=== PATIENT | male | born 1945 | race Caucasian/White ===

== ENCOUNTER 2016-09-20 19:06 | Emergency (ER) | payer OTHER ==
[~2016-09-20] VITALS: Ht 182.9 cm; Wt 124.5 kg
[~2016-09-20 19:06] MED LIST: BACT800T5 PO; FURO1TAB62 PO; LEVO100T5 PO; METF500T PO; ZOCO80TA PO
[2016-09-20 19:51] VITALS: BP 165/103; PULSE 103; RESP 20; TEMP 99.2; O2SAT 95
[2016-09-20] MEDS ORDERED: RAPA4CAP PO (20:08)
[2016-09-20 20:39] LABS: BLOOD, URINE LARGE (NEG); GLUCOSE,URINE NEG (NEG); KETONE, URINE NEG (NEG); PH, URINE 5.5 (5.0-8.5)
--- NOTE | 2016-09-20 20:40 | PD ---
HPI . Urine will not flow through the Sy catheter Chief Complaint: Complaint Time Seen by Provider: 20:08 Travel History International Travel<30 days: No Contact w/Intl Traveler<30days: No Traveled to known affect area: No History of Present Illness HPI Patient presents stating that urine stopped flowing through his Sy at about 3 :00 this afternoon. He has a lot of suprapubic pressure. He states it all started when he had a bowel movement which caused a little bit of blood from his bladder. He states he noticed blood in the catheter and at the tip of his penis. Since then, urine will not flow through the Sy. He denies any fever or any other systemic complaints. He has the Sy because of urinary retention associated with UTI and prostatitis. 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) High Cholesterol: Yes Diabetes: Yes (Borderline) Patient Takes Glucophage: No Diminished Hearing: No Influenza Vaccination: No Past Surgical History Other Surgery: Yes (thyroid removed r/t ca) Social History Alcohol Use: Yes (2-3 daily ) Tobacco Use: No (quit 7 years ago ) Substance Use: No Allergies-Medications (Allergen,Severity, Reaction): Coded Allergies: No Known Allergies (Verified , 09/20/16) Reported Meds & Prescriptions Reported Meds & Active Scripts Active Reported Rapaflo (Silodosin) 4 Mg Cap 4 Mg PO DAILY Zocor (Simvastatin) 80 Mg Tab 80 Mg PO DAILY Metformin (Metformin HCl) 500 Mg Tab 500 Mg PO DAILY With a meal Levothyroxine (Levothyroxine Sodium) 100 Mcg Tab 100 Mcg PO DAILY Lasix (Furosemide) 20 Mg Tab 40 Mg PO BID Review of Systems Except as stated in HPI: all other systems reviewed are Neg General / Constitutional: No: Fever, Chills Respiratory: Positive: Other Gastrointestinal: Positive: Abdominal Pain, No: Nausea, Vomiting Genitourinary: Positive: Other (Sy catheter) Physical Exam Narrative GENERAL: This is an elderly appearing man who speaks with a mechanical voice box SKIN: Warm and dry. HEAD: Atraumatic. Normocephalic. EYES: Pupils equal and round. ENT: No nasal bleeding or discharge. Mucous membranes pink and moist. NECK: Trachea midline. CARDIOVASCULAR: Regular rate and rhythm. RESPIRATORY: No accessory muscle use. GASTROINTESTINAL: Abdomen soft, non-tender, nondistended. I don't feel full bladder. MUSCULOSKELETAL: No obvious deformities. No edema. NEUROLOGICAL: Awake and alert. No obvious cranial nerve deficits. Motor grossly within normal limits. Normal speech. PSYCHIATRIC: Appropriate mood and affect; insight and judgment normal. Data Data Last Documented VS Vital Signs Date Time Temp Pulse Resp B/P Pulse Ox O2 Delivery O2 Flow Rate FiO2 09/20/16 19:51 99.2 103 20 165/103 95 Orders Urinary Catheter Insert/Apply (09/20/16 20:08) Urinalysis - C+S If Indicated (09/20/16 20:08) Urine Culture (09/20/16 20:20) Labs Laboratory Tests Test 09/20/16 20:20 Urine Collection Type CATH Urine Color LIGHT-BROWN Urine Turbidity CLOUDY Urine pH 5.5 Urine Specific [place] 1.010 Urine Protein 100 mg/dL Urine Glucose (UA) NEG mg/dL Urine Ketones NEG mg/dL Urine Occult Blood LARGE Urine Nitrite POS Urine Bilirubin NEG Urine Leukocyte Esterase SMALL Urine RBC INNUM /hpf Urine WBC 25-49 /hpf Urine WBC Clumps FEW Urine Squamous Epithelial 0-2 /hpf Cells Urine Bacteria MANY /hpf Microscopic Urinalysis Comment CULTURE INDICATED MDM Medical Decision Making Medical Screen Exam Complete: Yes Emergency Medical Condition: Yes Differential Diagnosis Differential diagnosis includes acute urinary retention, acute prostatitis, UTI. Narrative Course Patient presents stating that urine will not flow through his Sy. His old Sy has been removed and replaced. Initially, some small clots of blood. The urine has cleared. He initially drained about 800 cc. UA shows large blood, positive nitrite, positive leukocyte esterase, too numerous to count red blood cells, 25-49 white cells, white blood cell clumps and many bacteria. Diagnosis Primary Impression: Urinary retention Additional Impression: Acute UTI Med/Other Pt SpecificInfo: Prescription(s) given Scripts Cephalexin (Keflex)500 Mg [id number] Mg PO Q8H #30 CAP Ref 0 Prov:Cyndie Lynch MD 09/20/16 Disposition: 01 DISCHARGE HOME Condition: Stable Cyndie Lynch MD Sep 20, 2016 20:40
[2016-09-20 20:46] LABS: METHOD OF COLLECTION CATH; NITRITE,URINE POS (NEG); URINE COLOR LIGHT-BROWN (YELLW/STRAW)
[2016-09-20 20:47] LABS: BACTERIA, URINE MANY /hpf; COMMENT (UR) CULTURE INDICATED; CULTURE IF INDICATED CULTURE INDICATED; RBC, URINE INNUM /hpf (0-3); SQUAMOUS EPITHELIAL CELL URINE 0-2 /hpf (0-5)
[2016-09-20] MEDS ORDERED: CEPH-460 PO (21:12)
[2016-09-20 21:38] VITALS: BP 125/67
== END 2016-09-20 21:41 | disposition home or self-care (01) ==
LOC: PHED 19:06
DX: N39.0 Urinary tract infection, site not specified (principal); B96.20 Unspecified Escherichia coli [E. coli] as the cause of diseases classified elsewhere; R33.9 Retention of urine, unspecified
CPT/HCPCS: 51702; 81001; 87077; 87086; 87186

== ENCOUNTER 2016-09-30 09:36 | Emergency (ER) | payer OTHER ==
[~2016-09-30] VITALS: Ht 185.4 cm; Wt 125.0 kg
[~2016-09-30 09:36] MED LIST changes: -BACT800T5 PO; +CEPH-460 PO; +RAPA4CAP PO
[2016-09-30 09:38] VITALS: BP 139/77; PULSE 57; RESP 18; TEMP 97.8; O2SAT 98
--- NOTE | 2016-09-30 09:53 | PD ---
HPI . Wants Sy removed. Chief Complaint: Complaint Time Seen by Provider: 09:44 Travel History International Travel<30 days: No Contact w/Intl Traveler<30days: No Traveled to known affect area: No History of Present Illness HPI Patient presents requesting that his Sy catheter be removed. The Sy was initially inserted because of urinary retention associated with a UTI. He states that his urinary symptoms have completely resolved he feels that it is time for the catheter to be removed. 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) High Cholesterol: Yes Diabetes: Yes (Borderline) Diminished Hearing: No Past Surgical History Other Surgery: Yes (thyroid removed r/t ca) Social History Alcohol Use: Yes (2-3 daily ) Tobacco Use: No (quit 7 years ago ) Substance Use: No Allergies-Medications (Allergen,Severity, Reaction): Coded Allergies: No Known Allergies (Verified , 09/30/16) Reported Meds & Prescriptions Reported Meds & Active Scripts Active Keflex (Cephalexin) 500 Mg Cap 500 Mg PO Q8H Reported Rapaflo (Silodosin) 4 Mg Cap 4 Mg PO DAILY Zocor (Simvastatin) 80 Mg Tab 80 Mg PO DAILY Metformin (Metformin HCl) 500 Mg Tab 500 Mg PO DAILY With a meal Levothyroxine (Levothyroxine Sodium) 100 Mcg Tab 100 Mcg PO DAILY Lasix (Furosemide) 20 Mg Tab 40 Mg PO BID Review of Systems Except as stated in HPI: all other systems reviewed are Neg General / Constitutional: No: Fever, Chills Gastrointestinal: Positive: Other (clear urine with no suprapubic pain.) Physical Exam Narrative GENERAL: Speaks with the aid of a mechanical voice box SKIN: Warm and dry. HEAD: Atraumatic. Normocephalic. EYES: Pupils equal and round. ENT: No nasal bleeding or discharge. Mucous membranes pink and moist. NECK: Trachea midline. CARDIOVASCULAR: Regular rate and rhythm. RESPIRATORY: No accessory muscle use. GASTROINTESTINAL: Abdomen soft, non-tender, nondistended. : Sy catheter is in place and is draining clear yellow urine. MUSCULOSKELETAL: No obvious deformities. No edema. NEUROLOGICAL: Awake and alert. No obvious cranial nerve deficits. Motor grossly within normal limits. Normal speech. PSYCHIATRIC: Appropriate mood and affect; insight and judgment normal. Data Data Last Documented VS Vital Signs Date Time Temp Pulse Resp B/P Pulse Ox O2 Delivery O2 Flow Rate FiO2 09/30/16 09:38 97.8 57 18 139/77 98 MDM Medical Decision Making Medical Screen Exam Complete: Yes Emergency Medical Condition: Yes Differential Diagnosis My differential diagnosis of urinary retention includes but is not limited to BPH, prostatitis, UTI Narrative Course We will remove the catheter and instruct the patient to return if he is subsequently unable to urinate. Diagnosis Primary Impression: Urinary retention Disposition: 01 DISCHARGE HOME Condition: Stable Cyndie Lynch MD Sep 30, 2016 09:53
== END 2016-09-30 10:44 | disposition home or self-care (01) ==
LOC: PHED 09:36
DX: R33.9 Retention of urine, unspecified (principal)
CPT/HCPCS: 99283

== ENCOUNTER 2017-05-23 07:38 | Emergency (ER) | payer OTHER ==
[~2017-05-23] VITALS: Ht 185.4 cm; Wt 114.0 kg
[2017-05-23 07:43] VITALS: BP 183/88; PULSE 89; RESP 16; TEMP 99; O2SAT 99
--- NOTE | 2017-05-23 08:04 | PD ---
HPI Chief Complaint: Complaint Time Seen by Provider: 08:01 Travel History International Travel<30 days: No Contact w/Intl Traveler<30days: No Traveled to known affect area: No History of Present Illness HPI 72-year-old male patient with history of previous benign prostate hypertrophy, multiple medical issues, has had problems with urinary outflow obstruction about 8 months ago, presents to the ER today because he has not been able to urinate since 8 PM last night. He states that he felt abdominal distention. He states it feels like the last time he had problems with his prostate. He denies any fevers, vomiting, or any other symptoms. 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) High Cholesterol: Yes Diabetes: Yes (Borderline) Diminished Hearing: No Immunizations Current: Yes Past Surgical History Other Surgery: Yes (thyroid removed r/t ca) Social History Alcohol Use: Yes (2-3 daily ) Tobacco Use: No (quit 7 years ago ) Substance Use: No Allergies-Medications (Allergen,Severity, Reaction): Coded Allergies: No Known Allergies (Verified , 05/23/17) Reported Meds & Prescriptions Reported Meds & Active Scripts Active Reported Rapaflo (Silodosin) 4 Mg Cap 4 Mg PO DAILY Zocor (Simvastatin) 80 Mg Tab 80 Mg PO DAILY Metformin (Metformin HCl) 500 Mg Tab 500 Mg PO DAILY With a meal Levothyroxine (Levothyroxine Sodium) 100 Mcg Tab 100 Mcg PO DAILY Lasix (Furosemide) 20 Mg Tab 40 Mg PO BID Review of Systems Except as stated in HPI: all other systems reviewed are Neg Physical Exam Narrative GENERAL: Pleasant well-developed elderly white male patient currently in mild distress. Awake and oriented 3. SKIN: Focused skin assessment warm/dry. HEAD: Atraumatic. Normocephalic. EYES: Pupils equal and round. No scleral icterus. No injection or drainage. ENT: No nasal bleeding or discharge. Mucous membranes pink and moist. NECK: Trachea midline. Status post throat cancer resection and tracheostomy. CARDIOVASCULAR: Regular rate and rhythm. No murmur appreciated. RESPIRATORY: No accessory muscle use. Clear to auscultation. Breath sounds equal bilaterally. GASTROINTESTINAL: Abdomen soft, non-tender, moderately distended. Hepatic and splenic margins not palpable. MUSCULOSKELETAL: No obvious deformities. No clubbing. No cyanosis. No edema. NEUROLOGICAL: Awake and alert. No obvious cranial nerve deficits. Motor grossly within normal limits. Normal speech. PSYCHIATRIC: Appropriate mood and affect; insight and judgment normal. Data Data Last Documented VS Vital Signs Date Time Temp Pulse Resp B/P (MAP) Pulse Ox O2 Delivery O2 Flow Rate FiO2 05/23/17 07:43 99.0 89 16 183/88 (119) 99 Orders Orders Urinary Catheter Insert/Apply (05/23/17 07:46) MDM Medical Decision Making Medical Screen Exam Complete: Yes Emergency Medical Condition: Yes Medical Record Reviewed: Yes Differential Diagnosis Urinary outflow obstruction/BPH Narrative Course A Sy catheter was placed and at least 750 cc of clear yellow urine was strained. He felt much improved. At this point, my plan would be to release him with follow-up to his urologist, Dr. Peralta, with a leg bag. Return for new issues as needed. The plan has been discussed with him and he states understanding. Diagnosis Primary Impression: Urinary retention Disposition: DISCHARGE HOME Condition: Stable Vaughn Son MD May 23, 2017 08:04
== END 2017-05-23 08:36 | disposition home or self-care (01) ==
LOC: PHED 07:38
DX: R33.9 Retention of urine, unspecified (principal); R14.0 Abdominal distension (gaseous); R73.03 Prediabetes; E78.00 Pure hypercholesterolemia, unspecified; Z85.850 Personal history of malignant neoplasm of thyroid; Z79.84 Long term (current) use of oral hypoglycemic drugs
CPT/HCPCS: 51702

== ENCOUNTER 2017-06-26 10:58 | Emergency (ER) | payer OTHER ==
[~2017-06-26] VITALS: Ht 182.9 cm; Wt 116.1 kg
[~2017-06-26 10:58] MED LIST changes: -CEPH-460 PO
[2017-06-26 11:01] VITALS: BP 138/72; PULSE 57; RESP 18; TEMP 98.9; O2SAT 96
--- NOTE | 2017-06-26 11:19 | PD ---
HPI Chief Complaint: Complaint Time Seen by Provider: 11:14 Travel History International Travel<30 days: No Contact w/Intl Traveler<30days: No Traveled to known affect area: No History of Present Illness HPI Patient presents with complaints of urinary catheter bag leakage. Denies any new chest pain shortness of breath urinary or bowel symptoms. Denies any nausea vomiting diarrhea or fever. 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) High Cholesterol: Yes Diabetes: Yes Diminished Hearing: No Immunizations Current: Yes ?: Not Past Surgical History Other Surgery: Yes (thyroid removed r/t ca) Social History Alcohol Use: Yes (occas) Tobacco Use: No (quit 7 years ago ) Substance Use: No Allergies-Medications (Allergen,Severity, Reaction): Coded Allergies: No Known Allergies (Verified , 06/26/17) Reported Meds & Prescriptions Reported Meds & Active Scripts Active Reported Rapaflo (Silodosin) 4 Mg Cap 4 Mg PO DAILY Zocor (Simvastatin) 80 Mg Tab 80 Mg PO DAILY Metformin (Metformin HCl) 500 Mg Tab 500 Mg PO DAILY With a meal Levothyroxine (Levothyroxine Sodium) 100 Mcg Tab 100 Mcg PO DAILY Lasix (Furosemide) 20 Mg Tab 40 Mg PO BID Review of Systems General / Constitutional: No: Fever Eyes: No: Visual changes HENT: No: Headaches Cardiovascular: No: Chest Pain or Discomfort Respiratory: No: Shortness of Breath Gastrointestinal: No: Abdominal Pain Genitourinary: No: Dysuria Musculoskeletal: No: Pain Skin: No Rash Neurologic: No: Weakness Psychiatric: No: Depression Endocrine: No: Polydipsia Hematologic/Lymphatic: No: Easy Bruising Physical Exam Narrative GENERAL: Well-nourished, well-developed patient. SKIN: Focused skin assessment warm/dry. HEAD: Normocephalic. EYES: No scleral icterus. No injection or drainage. NECK: Supple, trachea midline. No JVD or lymphadenopathy. CARDIOVASCULAR: Regular rate and rhythm without murmurs, gallops, or rubs. RESPIRATORY: Breath sounds equal bilaterally. No accessory muscle use. GASTROINTESTINAL: Abdomen soft, non-tender, nondistended. Urinary catheter in place without competition, urinary leakage at the base of the bag MUSCULOSKELETAL: No cyanosis, or edema. BACK: Nontender without obvious deformity. No CVA tenderness. Data Data Last Documented VS Vital Signs Date Time Temp Pulse Resp B/P (MAP) Pulse Ox O2 Delivery O2 Flow Rate FiO2 06/26/17 11:01 98.9 57 18 138/72 (94) 96 MDM Medical Decision Making Medical Screen Exam Complete: Yes Emergency Medical Condition: Yes Differential Diagnosis Medical devices failure, dysuria, UTI Narrative Course Assessment and plan discussed with patient and at bedside. 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 Med/Other Pt SpecificInfo: No Meds Exist/No RX given Disposition: 01 DISCHARGE HOME Condition: Good Red Fregoso MD Jun 26, 2017 11:19
== END 2017-06-26 11:35 | disposition home or self-care (01) ==
LOC: PHED 10:58
DX: T83.031A Leakage of indwelling urethral catheter, initial encounter (principal); E11.9 Type 2 diabetes mellitus without complications; E78.00 Pure hypercholesterolemia, unspecified; Z79.84 Long term (current) use of oral hypoglycemic drugs; Z85.850 Personal history of malignant neoplasm of thyroid
CPT/HCPCS: 99281

== ENCOUNTER 2018-02-12 16:49 | Emergency (ER) | payer OTHER ==
[~2018-02-12] VITALS: Ht 185.4 cm; Wt 111.0 kg
[2018-02-12 17:05] VITALS: BP 161/69; PULSE 33; RESP 16; TEMP 97.9; O2SAT 100
[2018-02-12] MEDS ORDERED: LIDOCAINE HCL 1% 50 ML VIAL INFIL ONE (17:30)
--- NOTE | 2018-02-12 17:34 | PD ---
HPI Chief Complaint: Injury Time Seen by Provider: 17:13 Travel History International Travel<30 days: No Contact w/Intl Traveler<30days: No Traveled to known affect area: No History of Present Illness HPI 72yo M with right fifth digit injury after his generator was stuck while he was pulling it and it torn off a piece of skin and flesh from the volar aspect of the fifth toe and it went into extension. Pt said he waited a few hours because he is able to move his toe and ambulate. Denies any other injuries. Denies any focal weakness or numbness. Pt also has baseline low HR in the 40s. Pt has no dizziness, chest pain, sob, n/v, abdominal pain, focal weakness or numbness. 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) High Cholesterol: Yes Diabetes: No (diet control) Diminished Hearing: No Immunizations Current: Yes Past Surgical History Other Surgery: Yes (thyroid removed r/t ca) Social History Alcohol Use: Yes (occas) Tobacco Use: No (10 years ago) Substance Use: No Allergies-Medications (Allergen,Severity, Reaction): Coded Allergies: No Known Allergies (Verified Allergy, Unknown, 02/12/18) Reported Meds & Prescriptions Reported Meds & Active Scripts Active Tylenol (Acetaminophen) 325 Mg Tab 650 Mg PO Q6H PRN Cephalexin 500 Mg Cap 500 Mg PO Q12H 7 Days Reported Zocor (Simvastatin) 80 Mg Tab 80 Mg PO DAILY Levothyroxine (Levothyroxine Sodium) 100 Mcg Tab 100 Mcg PO DAILY Lasix (Furosemide) 20 Mg Tab 40 Mg PO BID Review of Systems Except as stated in HPI: all other systems reviewed are Neg Physical Exam Narrative GENERAL: 72yo M not in distress. SKIN: Focused skin assessment warm/dry. HEAD: Atraumatic. Normocephalic. EYES: Pupils equal and round. No scleral icterus. No injection or drainage. ENT: No nasal bleeding or discharge. Mucous membranes pink and moist. NECK: Trachea midline. No JVD. CARDIOVASCULAR: Regular rate and rhythm. No murmur appreciated. RESPIRATORY: No accessory muscle use. Clear to auscultation. Breath sounds equal bilaterally. GASTROINTESTINAL: Abdomen soft, non-tender, nondistended. MUSCULOSKELETAL: Right foot: +Open wound volar aspect of right fifth digit with gross edema of right fifth toe. DP 2+. Able to fully flex and extend all digits. No TTP bilateral ankles. NEUROLOGICAL: Awake and alert. No obvious cranial nerve deficits. Motor grossly within normal limits. Normal speech. PSYCHIATRIC: Appropriate mood and affect; insight and judgment normal. Data Data Last Documented VS Vital Signs Date Time Temp Pulse Resp B/P (MAP) Pulse Ox O2 Delivery O2 Flow Rate FiO2 02/12/18 19:04 55 18 97 02/12/18 18:48 Room Air 02/12/18 17:05 97.9 Orders Orders Electrocardiogram (02/12/18 ) Lidocaine 1% Inj (50 Ml) (Xylocaine 1% I (02/12/18 17:30) Lidocaine 1% Inj (Xylocaine 1% Inj) (02/12/18 17:45) Lidocaine 1% Inj (Xylocaine 1% Inj) (02/12/18 17:45) Lidocaine Pf 1% Inj (Xylocaine-Mpf 1% In (02/12/18 17:40) Tetanus/Diphtheria Tox Adult (Tetanus/Di (02/12/18 18:45) Cephalexin (Keflex) (02/12/18 18:45) Ed Discharge Order (02/12/18 19:01) MDM Medical Decision Making Medical Screen Exam Complete: Yes Emergency Medical Condition: Yes Interpretation(s) EKG: Sinus bradycardia at 43bpm. It is difficult to determine if it is mobitz I or mobitz II 2nd degree AV block. Differential Diagnosis Fracture vs. laceration vs. avulsion Narrative Course 72yo M with c/o right fifth toe pain s/p injury from generator. Pt has a complex laceration and it was thorough cleansed with removal of shells and repaired. Pt is refusing xray of right foot and said it is fine if he has a fracture, he can still walk on it. Pt also found to be bradycardic in the 40s and he said that it is normal for him. Pt follows with Dr. Jha and has no symptoms at all. It is difficult to tell if there is mobitz one or 2 on EKG but pt has good follow up with Dr. Jha and will follow up with her. Pt may need a pacemaker but he is not interested in staying in the hospital for any work up. Pt given tetanus and keflex. Return precautions given. Procedures Procedure Narrative LACERATION LOCATION: Right fifth toe LENGTH: 5cm NUMBER OF STITCHES/TG: 11 REPAIR: The area of the laceration was prepped with Betadine and sterilely draped. The laceration was infiltrated with 1% lidocaine. The wound was copiously irrigated and explored without evidence of foreign body, tendon injury or neurovascular injury. The wound was closed using 4-0 nylon. This was a single layer repair. A sterile dressing was applied. The patient was advised to keep the dressing clean and dry. Patient tolerated the procedure well. Diagnosis Primary Impression: Laceration Referrals: Carmen Burton DPM as needed Patient Instructions: General Instructions Departure Forms: Tests/Procedures Additional Instructions: Please follow up with your primary care physician for suture removal in 10-14 days. Please follow up with podiatry as needed. Please also follow up with your interior painter and return to the ED if you develop any symptoms. Med/Other Pt SpecificInfo: Prescription(s) given Scripts Acetaminophen (Tylenol) 325 Mg Tab 650 MG PO Q6H Y for PAIN SCALE 1 TO 4, #20 TAB 0 Refills Prov: Jennifer Krishnamurthy DO 02/12/18 Cephalexin (Cephalexin) 500 Mg Cap 500 MG PO Q12H for Infection for 7 Days, #14 CAP 0 Refills Prov: Jennifer Krishnamurthy DO 02/12/18 Disposition: 01 DISCHARGE HOME Condition: Stable Jennifer Krishnamurthy DO February 12, 2018 17:34
[2018-02-12] MEDS ORDERED: LIDOCAINE HCL 1% PF 30 ML VIAL ONE (17:40)
[2018-02-12] MEDS ORDERED: LIDOCAINE HCL 1% 30 ML VIAL INFIL ONE (17:45)
[2018-02-12] MEDS ORDERED: LIDOCAINE HCL 1% 20 ML VIAL INFIL ONE (17:45)
[2018-02-12] MEDS ORDERED: TETANUS/DIPHTHERIA TOXOID ADULT 0.5 ML VIAL IM ONE (18:45)
[2018-02-12] MEDS ORDERED: CEPHALEXIN MONOHYDRATE 500 MG CAP PO ONE (18:45)
[2018-02-12 18:48] VITALS: BP 154/74; RESP 18
[2018-02-12] MEDS ORDERED: CEPH500C PO (19:00)
[2018-02-12] MEDS ORDERED: TYLE325T PO (19:00)
--- NOTE | 2018-02-13 08:13 | EKG ---
Date Performed: 02/12/2018 Time Performed: 17:23:12 PTAGE: 72 years EKG: SINUS BRADYCARDIA WITH HIGH GRADE AV BLOCK WITH OCCASIONAL PVC, CANNOT RULE OUT SINUS SHAMIKA CARDIA WITH 2ND DEGREE AV BLOCK, TYPE 1, WITH OCCASIONAL JUNCTIONAL ESCAPE BEATS. NONSPECIFIC ST ABNO RMALITY ABNORMAL ECG PREVIOUS TRACING : 04/03/2007 09.28 Compared to previous tracing, EKG is no longer normal. DOCTOR: Marcos Rincon Interpretating Date/Time 02/13/2018 08:12:56
== END 2018-02-12 19:12 | disposition home or self-care (01) ==
LOC: PHED 16:49
DX: S91.114A Laceration without foreign body of right lesser toe(s) without damage to nail, initial encounter (principal); R00.1 Bradycardia, unspecified; I49.3 Ventricular premature depolarization; I44.1 Atrioventricular block, second degree; R94.31 Abnormal electrocardiogram [ECG] [EKG]; E78.00 Pure hypercholesterolemia, unspecified; W23.0XXA Caught, crushed, jammed, or pinched between moving objects, initial encounter; Z23 Encounter for immunization; Z79.899 Other long term (current) drug therapy
CPT/HCPCS: 12002; 90471; 90714; 93005